=== PATIENT | male | born 2005 | race Caucasian/White ===

== ENCOUNTER → 2024-02-19 10:57 | Outpatient (REF) | payer BC, SELFPAY | LOC: CLAB 10:57 | PROVIDERS: ATTENDING PHYSICIAN Otolaryngology | DX: J35.01 Chronic tonsillitis (principal) | CPT/HCPCS: 88304; 88305 ==

== ENCOUNTER 2025-02-18 17:39 | Emergency (ER) | payer BC, SELFPAY ==
[2025-02-18 19:20] VITALS: BMI 25.8
--- NOTE | 2025-02-18 19:24 | ED.GENMED ---
History of Present Illness
<Nel Gonzalez FL[employer] ENGINEER [employer]FORMANCE QUALIFIED - Last Filed: 02/18/25 20:18>
General
Chief Complaint: Abdominal Pain
Source: patient
Exam Limitations: none
Time Seen by Provider: 02/18/25 19:18
Nursing documentation reviewed up to this point in time: agreed with
History of Present Illness
History of Present Illness:
19 yo male w h/o hernia repair age 1 (doesn't know which side), presents for gradually increasing pain right lower abdomen and right testicle. At rest pain 2/10, pain worsens with certain movement, sharp shooting pain lasting seconds. The two pains
sometimes occur at same time and sometimes at different times. Denies dysuria, discharge, fever, nausea.
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
Past History
<Nel Gonzalez, FLIGHT ENGINEER PERFORMANCE QUALIFIED - Last Filed: 02/18/25 20:18>
Past History
ED Past Medical History: None
ED Past Surgical History: Other (Hernia repair age 1)
Social History
Tobacco: Non-smoker
Alcohol: Occasional
Personal: Single
Living: with family
Employment: Student
Review of Systems
<Nel Gonzalez, FLIGHT ENGINEER PERFORMANCE QUALIFIED - Last Filed: 02/18/25 20:18>
Review of Systems
Allergies reviewed?: Yes
All Other Systems: ROS reviewed and negative except as documented in HPI and ROS
Constitutional: Denies fever
ABD/GI: Reports abdominal pain (Intermittent pain right lower quadrant); Denies nausea or anorexia
: Reports other (Intermittent pain right testicle); Denies dysuria
Musculoskeletal: Reports no symptoms
Skin: Reports no symptoms
Neurological: Reports no symptoms
Phy Exam
<Nel Gonzalez, FLIGHT ENGINEER PERFORMANCE QUALIFIED - Last Filed: 02/18/25 20:18>
Physical Exam
Physical Exam:
GENERAL: No acute distress. A&Ox3.
CONSTITUTIONAL: Afebrile.
EYES: clear, conjunctivae normal
RESPIRATORY: Regular respirations, nonlabored, lungs clear.
CARDIOVASCULAR: Regular rate and rhythm, no murmurs, no rubs.
GI: Soft, nontender, normal BS, no palpable masses. When patient flexes his abdominal muscles there is no pain elicited and no palpable masses.
: Normal-appearing external genitalia. Circumcised. Minimal tenderness to right testicle on palpation, no palpable masses.
MUSCULOSKELETAL: Moves with ease. Well perfused.
SKIN: Warm, dry, pink
PSYCH: Normal mood and affect. Well kept, interactive and appropriate
NEUROLOGIC: Awake, alert and oriented. No focal neurological deficits
Course
<Nel Gonzalez FLIGHT ENGINEER PERFORMANCE QUALIFIED - Last Filed: 02/18/25 20:18>
Orders/Labs/Results
Orders:
Orders
02/18/25 17:52
US Abdomen Limited Urgent
Reason For Exam: right pelvic pain
US Scrotum Urgent
Comment:
Reason For Exam: right testicular and pelvic pain
02/18/25 19:39
Urinalysis Reflex To Culture Urgent
Date Specimen was Collected: 02/18/25
Time Specimen was Collected: 17:56
Vital Signs
Initial and Last Documented VS:
Initial Vital Signs
Temp
97.8 F
02/18/25 17:46
Last Documented Vital Signs
Temp BP Pulse Ox
97.8 F 131/69 99
02/18/25 17:46 02/18/25 19:42 02/18/25 19:32
<Saleem Guzman, DO - Last Filed: 02/18/25 19:34>
Orders/Labs/Results
Orders:
Orders
02/18/25 17:52
US Abdomen Limited Urgent
Reason For Exam: right pelvic pain
US Scrotum Urgent
Comment:
Reason For Exam: right testicular and pelvic pain
02/18/25 19:39
Urinalysis Reflex To Culture Urgent
Date Specimen was Collected: 02/18/25
Time Specimen was Collected: 17:56
Vital Signs
Initial and Last Documented VS:
Initial Vital Signs
Temp
97.8 F
02/18/25 17:46
Last Documented Vital Signs
Temp BP Pulse Ox
97.8 F 131/69 99
02/18/25 17:46 02/18/25 19:42 02/18/25 19:32
<Nel Gonzalez, FLIGHT ENGINEER PERFORMANCE QUALIFIED - Last Filed: 02/18/25 20:18>
MDM/Problems Addressed
Differential Diagnosis Includes:
Testicular torsion, hernia, hydrocele, varicocele, musculoskeletal pain
MDM/Problems Addressed:
19 yo male w h/o hernia repair age 1 (doesn't know which side), presents for gradually increasing pain right lower abdomen and right testicle. At rest pain 2/10, pain worsens with certain movement, sharp shooting pain lasting seconds. The two pains
sometimes occur at same time and sometimes at different times. Denies dysuria, discharge, fever, nausea.
Ultrasound abdomen at area of pain radiology report reviewed: IMPRESSION:
Scanning over the area of interest in the right groin demonstrates normal subcutaneous tissues and vessels. No sonographic evidence for mass, fluid collection or hernia.
Testicular ultrasound: Radiology report reviewed: 1. Small left varicocele. Otherwise unremarkable exam.
Case discussed with Dr. Guzman who examined patient
8:15 p.m.
U/A neg
Pt OK for discharge
<Nel Gonzalez, FLIGHT ENGINEER PERFORMANCE QUALIFIED - Last Filed: 02/18/25 20:18>
*Critical Care Note
Total Time (30-74mins, 75-104mins- exclusive of procedures): Not Applicable
ED Attending Note
<Nel Gonzalez, FLIGHT ENGINEER PERFORMANCE QUALIFIED - Last Filed: 02/18/25 20:18>
-
Portions of this chart may have been created with voice recognition software.� Occasional wrong word or��sound alike� substitutions may have occurred due to the inherent limitations of voice recognition software.
<Saleem Guzman DO - Last Filed: 02/18/25 19:34>
ED Attending Note
Patient seen and examined by attending physician: Yes
ED Attending Note:
I have reviewed and agree with history treatment plan DKA. Exam revealed soft abdomen, nontender. Slight tenderness to palpation however right inguinal area. Suspect hernia, testicular torsion patient, or appendicitis. Stable for discharge after
pending UA.
Discharge Plan
Departure
Patient Disposition: Home (Routine Discharge)
Date of Disposition: 02/18/25
Time of Disposition: 20:15
Patient with high blood pressure during this ER visit?: No
Condition: Good
Discharge Problem:
Pain in right testicle, Abdominal pain, RLQ
Instructions: How to Perform a Testicular Self-Exam, Abdominal Pain
Prescriptions:
No Action
hydrocodone-acetaminophen 1 TABLET tablet
1 - 2 tab PO Q4HPRN PRN (Reason: moderate to severe pain) Qty: 20 0RF
Referrals:
Your, doctor [Other] - As needed
UNKNOWN - PT DOES,NOT KNOW [Family Provider] -
Activity Restrictions/Additional Instructions:
As we discussed, your ultrasound showed nothing worrisome in the abdominal wall or the testicle.
Tylenol or ibuprofen as needed for pain
Your urine shows no sign of infection
Interventions
Interventions:
*Risk Screen - Suicide Last Done: 02/18/25 17:50
*General Assessment Last Done: 02/18/25 19:20
*Neglect/Abuse Screening Last Done: 02/18/25 17:50
*ED- Fall Risk Assessment Last Done: 02/18/25 19:20
*ED COVID-19 Vaccine History Last Done: 02/18/25 19:20
LY-Gytvst-Ukhareraan Assessment Last Done: 02/18/25 19:20
Discharge Date and Time
Print Language: MONGOLIAN
[2025-02-18 19:42] VITALS: BP 131/69
[2025-02-18 19:45] LABS: Urine Albumin Negative (Neg - Trace); Urine Bilirubin Negative (Negative); Urine Character Clear (Clear); Urine Glucose Negative (Negative); Urine Ketone Negative (Negative); Urine Leukocyte Negative (Negative); Urine Nitrite Negative (Negative); Urine Occult Blood Negative (Negative); Urine Specific Gravity 1.005 (<1.030); Urine Urobilinogen Negative (Neg - 1+)
[2025-02-18 19:47] LABS: Urine Color Straw
== END 2025-02-18 20:27 | disposition home or self-care (01) ==
LOC: EMR 17:39
PROVIDERS: EMERGENCY PHYSICIAN Emergency Medicine
DX: N50.811 Right testicular pain (principal); R10.31 Right lower quadrant pain; I86.1 Scrotal varices
CPT/HCPCS: 99284; 76705; 76870; 81003; 93976